=== PATIENT | female | born 1985 | race Caucasian/White ===

== ENCOUNTER 2017-03-12 19:12 | Emergency (ER) | payer BC ==
[2017-03-12] MEDS ORDERED: 0.9 % SODIUM CHLORIDE 1,000 ML BAG IV ONE (19:19)
--- NOTE | 2017-03-12 19:25 | Emergency Department Record ---
History of Present Illness - General Chief Complaint: Abdominal Pain Stated Complaint: POSSIBLE LABOR Time Seen by Provider: 03/12/17 19:15 Source: Patient - History of Present Illness Initial Comments: Patient has abdominal cramping on and off all day yesterday. They resolved during the night. Today around 4pm she developed hard cramping every 10 minutes. She has no vaginal bleeding, no breaking of her ordaz. She has felt the baby move today. MD Complaint: Abdominal pain ("labor") - Related Data Home Medications Medication Instructions Recorded Confirmed Last Taken Prenat 115/Iron Fum/Folic/Dss 1 each PO DAILY 03/12/17 03/12/17 Unknown [ 19 Tablet] Allergies Allergy/AdvReac Type Severity Reaction Status Date / Time No Known Drug Allergies Allergy Verified 03/12/17 19:19 Review of Systems Reviewed: No additional complaints except as noted below Constitutional: Reports: As per HPI. Denies: Chills, Fever, Malaise, Night sweats, Weakness, Weight change Eyes: Reports: As per HPI. Denies: Eye discharge, Eye pain, Photophobia, Vision change ENT: Reports: As per HPI. Denies: Congestion, Dental pain, Ear pain, Epistaxis , Hearing loss, Throat pain Respiratory: Reports: As per HPI. Denies: Cough, Dyspnea, Hemoptysis, Stridor, Wheezes Cardiovascular: Reports: As per HPI. Denies: Arrhythmia, Chest pain, Dyspnea on exertion, Edema, Murmurs, Orthopnea, Palpitations, Paroxysmal nocturnal dyspnea, Rheumatic Fever, Syncope Endocrine: Reports: As per HPI. Denies: Fatigue, Heat or cold intolerance, Polydipsia, Polyuria Gastrointestinal: Reports: As per HPI. Denies: Abdominal pain, Constipation, Diarrhea, Hematemesis, Hematochezia, Melena, Nausea, Vomiting Genitourinary: Reports: As per HPI. Denies: Abnormal menses, Discharge, Dyspareunia, Dysuria, Frequency, Hematuria, Incontinence, Retention, Urgency Musculoskeletal: Reports: As per HPI. Denies: Arthralgia, Back pain, Gout, Joint swelling, Myalgia, Neck pain Skin: Reports: As per HPI. Denies: Bruising, Change in color, Change in hair/ nails, Lesions, Pruritus, Rash Neurological: Reports: As per HPI. Denies: Abnormal gait, Confusion, Headache, Numbness, Paresthesias, Seizure, Tingling, Tremors, Vertigo, Weakness Psychiatric: Reports: As per HPI. Denies: Anxiety, Auditory hallucinations, Depression, Homicidal thoughts, Suicidal thoughts, Visual hallucinations Hematological/Lymphatic: Reports: As per HPI. Denies: Anemia, Blood Clots, Easy bleeding, Easy bruising, Swollen glands Physical Exam - General General Appearance: Alert, Oriented x3, Cooperative, No acute distress - Head Head exam: Normal inspection - Eye Eye exam: Normal appearance, PERRL Pupils: Normal accommodation - ENT ENT exam: Normal exam, Mucous membranes moist, Normal external ear exam, Normal orophraynx, TM's normal bilaterally Ear exam: Normal external inspection. negative: External canal tenderness Nasal Exam: Normal inspection. negative: Discharge, Sinus tenderness Mouth exam: Normal external inspection, Tongue normal Teeth exam: Normal inspection. negative: Dental caries Throat exam: Normal inspection. negative: Tonsillar erythema, Tonsillar exudate - Neck Neck exam: Normal inspection, Full ROM. negative: Tenderness - Respiratory Respiratory exam: Normal lung sounds bilaterally. negative: Respiratory distress - Cardiovascular Cardiovascular Exam: Regular rate, Normal rhythm, Normal heart sounds - GI/Abdominal GI/Abdominal exam: Soft, Normal bowel sounds, Other (gravid abdomen up to below xphoid, nontender). negative: Tenderness - Rectal Rectal exam: Deferred - exam: Other (sterile vaginal bimanual shows fingertip opening of cervix) - Extremities Extremities exam: Normal inspection, Full ROM, Normal capillary refill. negative: Calf tenderness, Pedal edema, Tenderness - Back Back exam: Reports: Normal inspection, Full ROM. Denies: Muscle spasm, Rash noted, Tenderness - Neurological Neurological exam: Alert, Normal gait, Oriented X3, Reflexes normal - Psychiatric Psychiatric exam: Normal affect, Normal mood - Skin Skin exam: Dry, Intact, Normal color, Warm Course - Reevaluation(s) Reevaluation #1: DW. Dr. Comfort Owens OB who requsts we send her to Triage of Labor and Delivery at [facility]. 03/12/17 19:26 Medical Decision Making - Management Options [facility] Management: Additional Work-up Planned (e.g. ADM/Transfer/OP Study) ( Transfer to [facility] Labor and Delivery triage for Dr. Moyer) - Data Complexity MDM Data: Labs Ordered and/or Reviewed Disposition Disposition: Transfer Clinical Impression: with 38 completed weeks gestation, Labor abnormal Disposition: Acute Care Hospital Transfer [facility] Reason For Transfer: contractions Accepting Physician: Dr. Moyer Time Discussed w/Accepting Physician: 19:30 Condition: (2) Stable Quality - Quality Measures Quality Measures: N/A - Blood Pressure Screening Does Patient Have Any of the Following: No Systolic Measurement: ~ Screening for High Blood Pressure: < Pre-Hypertensive BP, F/U Documented > [ G8950] Pre-Hypertensive Follow-up Interventions: Follow-up with rescreen every year.
[2017-03-12 19:27] LABS: BASO % 0.2 % (0-6); EOS % 0.7 % (0-6); GRAN % 72.3 % (47-80); HEMATOCRIT 36.1 % (35.0-47.0); HEMOGLOBIN 11.9 gm/dl (11.6-16.0); LYMPH % 21.3 % (16-45); MEAN CELL VOLUME 96.8 fl (81-97); MEAN CORPUSCULAR HEMOGLOBIN 31.9 pg (27-33); MEAN PLATELET VOLUME 10.6 fl (7.4-10.4); MONO % 5.5 % (0-9); PLATELET COUNT 307 K/uL (130-400); RED BLOOD COUNT 3.73 M/uL (3.80-5.40); WHITE BLOOD COUNT W/O DIFF 14.1 K/uL (4.2-12.2)
[2017-03-12 19:37] LABS: BLOOD UREA NITROGEN 8 mg/dL (6-20); CREATININE 0.4 mg/dL (0.5-0.9); EST GLOMERULAR FILTRATION RATE > 60 mL/min
[2017-03-12 19:38] LABS: TOTAL PROTEIN 7.2 g/dL (6.6-8.7)
[2017-03-12 19:40] LABS: GLUCOSE,RANDOM 108 mg/dL (74-109)
[2017-03-12 19:43] LABS: ALBUMIN 3.6 g/dL (4.0-5.0); ALKALINE PHOSPHATASE 146 U/L (35-104); ALT/SGPT 16 U/L (<33); AST/SGOT 17 U/L (10.0-35.0)
== END 2017-03-12 19:49 | disposition short-term general hospital (02) ==
LOC: ER 19:12
DX: O75.89 Other specified complications of labor and delivery (principal); Z3A.38 38 weeks gestation of pregnancy
CPT/HCPCS: 80053; 85025; 99285; J7030

== ENCOUNTER 2018-11-15 17:53 | Emergency (ER) | payer BC, OTHER ==
[2018-11-15] MEDS ORDERED: LIDOCAINE 1% MPF 100MG/10ML STERILE-PAK AMPULE IV ONE (18:20)
--- NOTE | 2018-11-15 18:46 | Emergency Department Record ---
History of Present Illness - General Chief Complaint: Laceration(s) Stated Complaint: laceration lt hand Time Seen by Provider: 11/15/18 18:07 Source: Patient Mode of Arrival: Ambulatory Limitations: No limitations - History of Present Illness Initial Commments: The patient is here due to a L 3rd finger laceration which occurred an hour ago with a knife. She feels the end of the finger is mildly numb but no weakness. Her Td is UTD. Onset/Timin -: Minutes(s) Treatments Prior to Arrival: Bandage - [place] Coma Scale Eye Response: (4) Open spontaneously Motor Response: (6) Obeys commands Verbal Response: (5) Oriented [place] Total: 15 - Related Data Previous Rx's Medication Instructions Recorded Cephalexin [Keflex] 500 mg PO TID #15 cap 11/15/18 Allergies Allergy/AdvReac Type Severity Reaction Status Date / Time No Known Drug Allergies Allergy Verified 03/12/17 19:19 Travel Screening - Travel/Exposure Within Last 30 Days Have you traveled within the last 30 days?: Yes Location Detail:: [place] - Travel/Exposure Within Last Year Have you traveled outside the [place] in the last year?: No - Additonal Travel Details Have you been exposed to anyone with a communicable illness?: No - Travel Symptoms Symptom Screening: None Review of Systems Constitutional: Denies: Chills, Fever Past Medical History - SOCIAL HISTORY Smoking Status: Never smoker Alcohol Use: Occasional Drug Use: None - RESPIRATORY Hx Respiratory Disorders: No - CARDIOVASCULAR Hx Cardio Disorders: Yes Hx Palpitations: Yes - NEURO Hx Neuro Disorders: No - GI Hx GI Disorders: No - Hx Genitourinary Disorders: No - ENDOCRINE Hx Endocrine Disorders: No - MUSCULOSKELETAL Hx Musculoskeletal Disorders: No - PSYCH Hx Psych Problems: No - HEMATOLOGY/ONCOLOGY Hx Hematology/Oncology Disorders: No Family Medical History Any Significant Family History?: No Physical Exam - General General Appearance: Alert, Cooperative - Extremities Extremities exam: Full ROM (There is normal flexion of the DIP joint. ), Other (The patient does feel mildly numb distal to the lac but the ulnar side of the finger is numb also which does not make sense anatomically. ). negative: Normal inspection (There is a one cm lac to the distal L 3rd finger just distal to the DIP joint on the palmar surface radial side. ) Image of Finger Tip: 1 - Area of lac. Course Vital Signs 11/15/18 11/15/18 17:58 18:03 Temperature 98.9 F Pulse Rate 87 Respiratory 20 Rate Blood Pressure 141/96 Pulse Ox 100 - Reevaluation(s) Reevaluation #1: Procedure note: The L 3rd finger was anesth. with 2.5 cc's Lido 1%. The wound was prepped with betadine and lavaged with sterile saline. The wound was explored and not down to tendon or bone. The lac was then closed with 3 4.0 nylon sutures. There were no complications. 11/15/18 18:47 Reevaluation #2: I explained to the patient that she may have a very distal nerve injury but it is unclear at this time due to the ulnar surface being numb also. The patient may want to see a hand surgeon for consultation but she is not sure. We will refer her to Dr. Mullins if the numbness to the finger tip persists. 11/15/18 18:48 Disposition Disposition: Discharge Clinical Impression: Finger laceration Qualifiers: Encounter type: initial encounter Finger: middle finger Damage to nail status: without damage Foreign body presence: without foreign body Laterality: left Qualified Code(s): S61.213A - Laceration without foreign body of left middle finger without damage to nail, initial encounter Disposition: Home, Self-Care Condition: (2) Stable Instructions: Laceration (ED) Additional Instructions: Keep dry for 2 days but then no soaking or swimming. Take the Keflex as directed. Please have the sutures removed in 10 days. Return to the ER sooner for any signs of infection. Please see Dr. Mullins if the finger numbness pers ists. Prescriptions: Cephalexin [Keflex] 500 mg PO TID #15 cap Referrals: CESIA MULLINS M.D. [MEDICAL DOCTOR] - Forms: Patient Portal Access Time of Disposition: 18:51 Quality - Quality Measures Quality Measures: N/A - Blood Pressure Screening View Details: Yes Does Patient Have Any of the Following: No Blood Pressure Classification: Hypertensive Reading Systolic Measurement: 141 Diastolic Measurement: 96 Screening for High Blood Pressure: < First Hypertensive BP, F/U Documented > [G8950] First Hypertensive Follow-up Interventions: Referral to alternative/primary care provider.
== END 2018-11-15 19:02 | disposition home or self-care (01) ==
LOC: ER 17:53
DX: S61.213A Laceration without foreign body of left middle finger without damage to nail, initial encounter (principal); R20.0 Anesthesia of skin; W26.0XXA Contact with knife, initial encounter; Y93.G1 Activity, food preparation and clean up
CPT/HCPCS: 12001; 99283

== ENCOUNTER 2018-11-27 14:06 | Emergency (ER) | payer OTHER ==
--- NOTE | 2018-11-27 14:17 | Emergency Department Record ---
History of Present Illness - General Stated Complaint: SUTURE REMOVAL Time Seen by Provider: 11/27/18 14:08 Source: Patient Mode of arrival: Ambulatory Limitations: No limitations - History of Present Illness Initial Comments: 33 yo presents for wound evaluation for suture removal. She had some numbness on the side of the finger with the laceration. The numbness is unchanged. She has full ROM but it feels stiff. No abnormal pain, redness or drainage. She has not called the hand surgeon she was given information for yet. -: Week(s) (2) Initial Visit For: Laceration Returns Today for: Staple/stitch removal, Wound recheck Symptoms Since Prior Visit: No new symptoms Associated Symptoms: None Treatments Prior to Arrival: Other - Related Data Allergies Allergy/AdvReac Type Severity Reaction Status Date / Time No Known Drug Allergies Allergy Verified 03/12/17 19:19 Review of Systems Constitutional: Denies: Chills, Fever, Malaise ENT: Denies: Congestion Respiratory: Denies: Cough Gastrointestinal: Denies: Diarrhea, Nausea, Vomiting Musculoskeletal: Denies: Arthralgia, Myalgia Skin: Denies: Bruising, Change in color, Rash Neurological: Reports: Numbness Psychiatric: Denies: Anxiety Hematological/Lymphatic: Denies: Easy bleeding, Easy bruising Past Medical History - SOCIAL HISTORY Smoking Status: Never smoker Drug Use: None - RESPIRATORY Hx Respiratory Disorders: No - CARDIOVASCULAR Hx Cardio Disorders: Yes Hx Palpitations: Yes - NEURO Hx Neuro Disorders: No - GI Hx GI Disorders: No - Hx Genitourinary Disorders: No - ENDOCRINE Hx Endocrine Disorders: No - MUSCULOSKELETAL Hx Musculoskeletal Disorders: No - PSYCH Hx Psych Problems: No - HEMATOLOGY/ONCOLOGY Hx Hematology/Oncology Disorders: No Physical Exam - General General Appearance: Alert, Oriented x3, Cooperative, No acute distress - Head Head exam: Normal inspection - Eye Eye exam: Normal appearance - ENT ENT exam: Normal exam - Extremities Extremities exam: Other (well healed finger, full ROM, sensory loss at the tip on the side of the laceration, present of the contralateral side tip) - Neurological Neurological exam: Motor sensory deficit, Normal gait Course - Reevaluation(s) Reevaluation #1: Sutures removed without difficulty No signs of complications with healing We discussed home care while the wound continues to heal We discussed still calling the hand surgeon given the numbness and stiff feeling in the finger 11/27/18 14:10 Disposition Disposition: Discharge Clinical Impression: Visit for suture removal Disposition: Home, Self-Care Condition: (1) Good Instructions: Stitches Removal (ED) Additional Instructions: Return if you have any concerns with the continued healing of the laceration Call Dr Hall for follow up of the numbness and stiffness in the finger Forms: Patient Portal Access Time of Disposition: 14:18 Quality - Quality Measures Quality Measures: N/A - Blood Pressure Screening Does Patient Have Any of the Following: No Blood Pressure Classification: Normal BP Reading Systolic Measurement: 118 Diastolic Measurement: 76 Screening for High Blood Pressure: < Normal BP, F/U Not Required > [G8783]
== END 2018-11-27 14:21 | disposition home or self-care (01) ==
LOC: ER 14:06
DX: Z48.02 Encounter for removal of sutures (principal)